=== PATIENT | female | born 1990 | race Caucasian/White ===

== ENCOUNTER 2018-05-10 16:47 | Emergency (ER) | payer OTHER ==
[2018-05-10 17:03] VITALS: BP 119/62
--- NOTE | 2018-05-10 17:18 | EDPHY ---
General - History History Review: I reviewed the patient's medical records, I obtained additional history from the patient's family Smoking Status: Never smoked Time Seen by Provider: 05/10/18 17:13 Narrative: CHIEF COMPLAINT: Foot pain, redness on the foot HISTORY OF PRESENT ILLNESS: Patient presents by private vehicle with complaints of right foot pain. She has complex history with surgical interventions over the past 2 weeks x2 in this right foot for nerve entrapment. The incisions on the plantar surface. She says she has no complaints with these and has been adhering to her postsurgical recommendations. However she has a spot on the top of the right foot that has become painful. She feels that it is burning and irritated. She has not been ambulate on it. She has no fever. She has moderate pain with palpation and movement. No pain or rest. She has no pain in the right leg or calf. No swelling of the right leg or calf. No chest pain or shortness of breath but no fever. She has been taking Keflex 3 times daily postoperatively. Most recently she is postop day 4. No other associated complaints or modifying factors. REVIEW OF SYSTEMS: 10 systems were reviewed and negative with the exception of the elements mentioned in the history of present illness. PCP: None locally SPECIALISTS: Located in [place] PAST MEDICAL HISTORY: "Nerve entrapment of the foot" PAST SURGICAL HISTORY: Bilateral spinning bath patroller surgeries for plantar nerve decompression SOCIAL HISTORY: Nonsmoker. Lives in [facility] FAMILY HISTORY: Noncontributory EXAMINATION: Vitals: Triage VS reviewed General Appearance: Alert, no distress. Well appearing. Head: normocephalic, atraumatic Eyes: Pupils equal and round, no conjunctival pallor or injection Respiratory: Normal work of breathing. No distress or retractions. Cardiovascular: Regular rate. Good signs of perfusion with symmetric DP and PT pulses 2+. No cyanosis or pallor to the feet. Neurological: A&O, nonfocal, light sensory symmetric in lower extremities. Normal proprioception of the great toes. Skin: Warm and dry, no rash. There are clean, dry and intact surgical stations to the plantar surface of both feet. No dehiscence. No surrounding cellulitis, fluctuance or induration. Extremities: Tenderness to both feet bilaterally. Range of motion not tested due to postop restrictions. There is a small area, 2 cm x 3 cm, well- circumscribed erythema to the dorsum of the right foot. This consistent with early pressure ulceration. This was stage I. There is no cellulitis, warmth, fluctuance, induration or signs of abscess. No signs of osteomyelitis. All compartments are soft in the right lower extremity. There is no evidence of DVT. Psychiatric: Mood and affect normal DIFFERENTIAL DIAGNOSES: Including but not limited to pressure ulcer, cellulitis, abscess, osteomyelitis MDM: 5:15 p.m. Small area of suspected pressure ulceration to the dorsum of the right foot. This is 2 cm x 3 cm. Well circumscribed. There is no area of fluctuance, induration or evidence of osteomyelitis. Her incisions are clean, dry and intact. She has no evidence of DVT in the right lower extremity. I will increase her Keflex from 3 times daily to 4 times daily. A Mepilex dressing will be placed for better wound care. We discussed 24 hr wound check. We discussed returning sooner for any worsening symptoms. She is comfortable this plan. Discharged stable condition. SUPERVISION: This patient was independently evaluated without direct involvement of or examination by the attending physician. CONSULTATION: None (Shan Whitman) Discussion: The patient was evaluated and managed by the Physician House Principal. My co- signature indicates that I have reviewed this chart and I agree with the findings and plan of care as documented. I am the secondary supervising physician. (Deepthi Carlos) - Objective Vital Signs: Initial Vital Signs Temperature (C) 36.6 C 05/10/18 17:01 Heart Rate 103 H 05/10/18 17:01 Respiratory Rate 18 05/10/18 17:01 Blood Pressure 119/62 05/10/18 17:01 O2 Sat (%) 96 05/10/18 17:01 O2 Delivery Mode Room Air Allergies/Adverse Reactions: Sulfa (Sulfonamide Antibiotics) Allergy (Verified 05/10/18 17:00) Home Medications: Medication Instructions Recorded Cephalexin [Keflex (*)] 500 mg PO QID #28 cap 05/10/18 Departure - Departure Disposition: Home, Routine, Self-Care Clinical Impression: Pressure ulcer of foot, stage 1 Condition: Good Instructions: Acute Wounds (ED) Additional Instructions: 1. Increase her Keflex to 4 times daily dosing. 2. Return here in 24 hr if you have any worsening of the redness, fever, pain, swelling or redness of the leg Referrals: Lanye Hernández MD [Medical Doctor] - As per Instructions Physician,Emergency DeptMD [Medical Doctor] - As per Instructions Prescriptions: Cephalexin [Keflex (*)] 500 mg PO QID #28 cap
== END 2018-05-10 17:44 | disposition home or self-care (01) ==
DX: L89.891 Pressure ulcer of other site, stage 1 (principal); Z86.69 Personal history of other diseases of the nervous system and sense organs; Z98.890 Other specified postprocedural states